=== PATIENT | female | born 1970 | race Caucasian/White ===

== ENCOUNTER 2017-12-23 01:46 | Observation (INO) ==
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
[2017-12-23] MEDS ORDERED: Naloxone 0.4 MG/ML INJ IVP PRN (07:40)
[2017-12-23 08:38] LABS: Basophils % 0.2 %; Eosinophils # 0.1 K/mcL (0.0-0.6); Eosinophils % 1.6 %; Hematocrit 38.5 % (35.3-44.9); Immature Granulocytes % 0.2 % (0-4); Lymphocytes # 1.6 K/mcL (0.6-4.6); Mean Corpuscular HGB Conc 33.8 g/dL (31.6-35.5); Mean Corpuscular Hemoglobin 32.8 pg (28.0-33.3); Mean Corpuscular Volume 97.2 fL (83.0-100.0); Mean Platelet Volume 9.9 fL (9.4-12.4); Monocytes # 0.4 K/mcL (0.0-1.3); Monocytes % 8.1 %; Platelet Count 168 K/mcL (140-400); Red Blood Count 3.96 M/mcL (3.82-4.97); Red Cell Distribution Width 12.6 % (11.5-14.5); Segmented Neutrophils % 58.9 %
[2017-12-23 09:06] LABS: Alanine Aminotransferase 18 Units/L (7-52); Albumin 4.2 g/dL (3.5-5.7); Albumin/Globulin Ratio 1.8 (1.1-2.2); Alkaline Phosphatase 40 Units/L (34-104); Aspartate Amino Transferase 16 Units/L (13-39); BUN/Creatinine Ratio 16 (6-26); Bilirubin,Total 0.6 mg/dL (0.3-1.0); Blood Urea Nitrogen 11 mg/dL (6-20); Calcium 9.1 mg/dL (8.6-10.3); Carbon Dioxide 26 mEq/L (23-29); Chloride 109 mEq/L (98-107); Globulin 2.3 g/dL (2.4-3.5); Glucose 92 mg/dL (70-105); Osmolality,Calculated 287 (280-300); Phosphorous 2.9 mg/dL (2.7-4.5); Potassium 3.8 mEq/L (3.5-5.1); Sodium 139 mEq/L (136-145); Total Protein 6.5 g/dL (6.4-8.9); eGFR For African Americans > 60 (> 60); eGFR For Non-African Americans > 60 (> 60)
[2017-12-23 09:24] LABS: Troponin I < 0.03 ng/mL (< 0.04)
[2017-12-24 11:06] VITALS: BP 111/70
--- NOTE | 2017-12-24 16:12 | Discharge Summary ---
- NOTES TO OUTPATIENT PROVIDER Notes to Outpatient Provider: Follow up with PCP in 2-3 days after discharge. Add zanaflex to allergy list due to bradycardia. Please address anxiety/PTSD. Orders not resulted at time of discharge: Pending orders 12/23/17 07:35 EKG [ECG 12 lead ECG] [ECG] Stat Date of Encounter: 12/24/17 Time of Encounter: 16:09 - Discharge Diagnosis (1) Sinus bradycardia Priority: Primary Status: Resolved Comments: Symptomatic upon admission. Now resolved. Hospital course: Ms. Gregg Sorensen is a 47 year old female admitted for symptomatic sinus bradycardia. Patient admitted for observation to general medical floor on telemetry. Zanaflex was thought to have cause bradycardia, so it was held. Repeat EKG showed normal sinus rhythm. Bradycardia resolved the next day with HR in 60-70s. Troponins were negative. Labwork was unremarkable. ECHO showed LVEF of 65% with normal LV chamber size, wall thickness, and function; no other dysfunction noted. Patient states that she is back to feeling normal on the day of discharge. She will follow up with PCP in 2-3 days after discharge. Patient has met maximum benefit of this hospitalization and will be discharged home in stable condition. Discharge discussed with: patient, nurse, case management, other (Pharmacist) - Time Spent with Patient Total time spent providing and/or coordinating discharge services: Less than 30 minutes - Discharge Medications Home Medications: RX: Butterbur Root Extract [Petadolex] 50 mg PO DAILY 12/23/17 [History] Rovofur 12/23/17 [History] Allergies/Adverse Reactions: 3 Allergy/AdvReac Type Severity Reaction Status Date / Time amantadine AdvReac Agitated Verified 12/23/17 09:15 Tizanidine AdvReac See Verified 12/23/17 09:15 Comments Date of admission: 12/23/17 03:34 Primary care physician: Renny Ryan MD Discharging clinician: Niraj Beltre Anticipated date of discharge: 12/24/17 - Constitutional Vitals: Temp Pulse Resp BP Pulse Ox 98 F 58 17 111/70 98 12/24/17 06:55 12/24/17 11:00 12/24/17 11:00 12/24/17 11:00 12/24/17 11:00 General appearance: Present: cooperative, A&O X 3, pleasant, no acute distress, answers questions appropriately - Eye Eye exam: Present: EOMI, PERRL. Absent: nystagmus, scleral icterus - Respiratory Respiratory exam: Present: CTAB. Absent: accessory muscle use, rales, rhonchi, wheezes Additional comments: Normal WOB - Cardiovascular Cardiovascular exam: Present: RRR, +S1, +S2. Absent: diastolic murmur, gallop, rubs, systolic murmur Additional comments: No BLE edema - GI/Abdominal GI/Abdominal exam: Present: normal bowel sounds, soft. Absent: distended, hepatomegaly, mass, splenomegaly, tenderness - Psychiatric Psychiatric exam: Present: normal affect, normal mood. Absent: anxious, depressed - Skin Skin exam: Present: dry, intact, warm. Absent: cyanosis, rash - Patient Status Disposition: Home, Self-Care Condition: Good Functional capacity at discharge: independent ambulation Overall status at discharge: patient is back to baseline - Discharge Instructions Instructions: Bradycardia (DC) Follow Up With: Renny Ryan MD [Primary Care Provider] - 12/30/17 3:00 pm Additional Instructions: Follow up with PCP in 2-3 days after discharge. Add zanaflex to allergy list due to bradycardia. Please address anxiety/PTSD. - Diet and Activity Activity: resume usual activities as tolerated Diet: advance to your usual diet
--- NOTE | 2017-12-28 22:35 | Electrocardiograph Report ---
[place] [id number] Test Date: 2017-12-24 Pat Name: Jessica Sorensen Department: 111 Room: 2NE26 Gender: F Event Sales Assistant: CHRISTIAN : 1970 Requested By: Ana Kaufman Order Number: [id number] Reading MD: Ivan Ramirez DO Measurements Intervals [place] Rate: 59 P: 44 CT: 154 QRS: 58 QRSD: 96 T: 44 QT: 409 QTc: 409 Interpretive Statements SINUS BRADYCARDIA Electronically Signed On 12-28-2017 22:33:06 EDT by Ivan Ramirez DO
== END 2017-12-24 16:46 | disposition home or self-care (01) ==
LOC: 2NENU → MERGE 03:34
PROVIDERS: ADMIT Internal Medicine; ATTEND Family Medicine